=== PATIENT | male | born 1965 | race Asian ===

== ENCOUNTER 2019-03-31 20:27 | Emergency (ER) | payer OTHER ==
[~2019-03-31] VITALS: Ht 180.3 cm; Wt 142.9 kg
[2019-03-31] MEDS ORDERED: CARTIA XT240 MG PO (20:45)
[2019-03-31] MEDS ORDERED: BENA20TA2 PO (20:45)
[2019-03-31] MEDS ORDERED: CETIRIZINE10 MG PO (20:45)
[2019-03-31] MEDS ORDERED: METF500T PO (20:45)
[2019-03-31] MEDS ORDERED: COLCRYS 0.6MG0.6 MG PO (20:46)
[2019-03-31] MEDS ORDERED: JANTOVEN7.5 MG PO (20:46)
[2019-03-31] MEDS ORDERED: FURO40TA93 PO (20:46)
[2019-03-31] MEDS ORDERED: PANTOPRAZOLE 40MG TA PO (20:47)
[2019-03-31] MEDS ORDERED: SIMV10TA PO (20:47)
[2019-03-31] MEDS ORDERED: CARV6.25 PO (20:47)
[2019-03-31] MEDS ORDERED: ASA LOW DOSE81 MG PO (20:48)
[2019-03-31] MEDS ORDERED: K-TAB20 MEQ PO (20:48)
[2019-03-31 21:16] LABS: PLATELET COUNT 213 K/uL (142-355)
[2019-03-31 21:20] LABS: POTASSIUM 3.6 mmol/L (3.6-5.2)
[2019-03-31 22:12] VITALS: BP 136/89; TEMP 99
== END 2019-03-31 22:12 | disposition home or self-care (01) ==
LOC: ED 20:27
PROVIDERS: Hospitalist
DX: J06.9 Acute upper respiratory infection, unspecified (principal); J40 Bronchitis, not specified as acute or chronic; I50.9 Heart failure, unspecified
CPT/HCPCS: 36415; 80048; 85027; 85610; 87502; 87651; 94664; 99281; 99283

== ENCOUNTER 2019-11-19 09:22 | Emergency (ER) | payer OTHER ==
[~2019-11-19] VITALS: Ht 180.3 cm; Wt 147.4 kg
[~2019-11-19 09:22] MED LIST: ASA LOW DOSE81 MG PO; BENA20TA2 PO; CARTIA XT240 MG PO; CARV6.25 PO; CETIRIZINE10 MG PO; COLCRYS 0.6MG0.6 MG PO; FURO40TA93 PO; JANTOVEN7.5 MG PO; K-TAB20 MEQ PO; METF500T PO; PANTOPRAZOLE 40MG TA PO; SIMV10TA PO
[2019-11-19 10:54] LABS: PLATELET COUNT 158 K/uL (142-355)
[2019-11-19 11:11] LABS: POTASSIUM 4.1 mmol/L (3.6-5.2)
[2019-11-19 11:30] LABS: PARTIAL THROMBOPLASTIN TIME 48.6 SECONDS (24.5-33.6)
[2019-11-19 12:18] VITALS: BP 110/71; TEMP 99.1
== END 2019-11-19 12:20 | disposition home or self-care (01) ==
LOC: ED 09:22
PROVIDERS: Hospitalist
DX: U07.1 COVID-19 (principal); J06.9 Acute upper respiratory infection, unspecified; R50.9 Fever, unspecified; R06.02 Shortness of breath
CPT/HCPCS: 36415; 80053; 82550; 82553; 83605; 83880; 84484; 85027; 85610; 85730; 87040; 87502; 87635; 87651; 93005; 99283; U0003

== ENCOUNTER 2020-02-06 14:03 | Outpatient (CLI) | payer OTHER | END 2020-02-07 00:45 | disposition home or self-care (01) | LOC: RESP 14:03 | DX: I48.0 Paroxysmal atrial fibrillation (principal); I42.8 Other cardiomyopathies; I10 Essential (primary) hypertension ==

== ENCOUNTER 2020-02-23 12:54 | Outpatient (CLI) | payer OTHER ==
[2020-02-23 13:56] LABS: PLATELET COUNT 236 K/uL (142-355)
[2020-02-23 14:10] LABS: POTASSIUM 3.5 mmol/L (3.6-5.2)
== END 2020-02-23 20:37 | disposition home or self-care (01) ==
LOC: US 12:54
PROVIDERS: Nurse Practitioner Family
DX: R10.11 Right upper quadrant pain (principal)
CPT/HCPCS: 36415; 80053; 85027

== ENCOUNTER 2020-05-19 09:48 | Emergency (ER) | payer OTHER ==
[~2020-05-19] VITALS: Ht 180.3 cm; Wt 147.4 kg
[2020-05-19 09:50] VITALS: TEMP 98.5
[2020-05-19 10:24] LABS: PLATELET COUNT 275 K/uL (142-355)
[2020-05-19 10:30] LABS: POTASSIUM 3.8 mmol/L (3.6-5.2)
[2020-05-19 11:01] LABS: PARTIAL THROMBOPLASTIN TIME 46.2 SECONDS (24.5-33.6)
[2020-05-19 11:52] VITALS: BP 138/70
== END 2020-05-19 11:52 | disposition home or self-care (01) ==
LOC: ED 09:48
PROVIDERS: Hospitalist
PROC: 0H95XZZ Drainage of Chest Skin, External Approach (ICD-10-PCS; principal; 2020-05-19)
DX: L02.213 Cutaneous abscess of chest wall (principal)
CPT/HCPCS: 80048; 85027; 85610; 85730; 87070; 87077; 87185; 87186; 87205; 96365; 96375; 99284; J1885; J2405; J3370

== ENCOUNTER 2021-05-21 23:45 | Emergency (ER) | payer OTHER ==
[~2021-05-21] VITALS: Ht 180.3 cm; Wt 145.2 kg
[2021-05-22 00:22] VITALS: BP 134/74; TEMP 99.1
== END 2021-05-22 00:24 | disposition home or self-care (01) ==
LOC: ED 23:45
DX: S46.812A Strain of other muscles, fascia and tendons at shoulder and upper arm level, left arm, initial encounter (principal); X50.9XXA Other and unspecified overexertion or strenuous movements or postures, initial encounter; Y92.89 Other specified places as the place of occurrence of the external cause
CPT/HCPCS: 99282

== ENCOUNTER 2021-06-02 11:36 | Outpatient (CLI) | payer OTHER ==
[~2021-06-02] VITALS: Ht 180.3 cm; Wt 142.0 kg
== END 2021-06-02 19:04 | disposition home or self-care (01) ==
LOC: INF 11:36
PROVIDERS: ATTEND Nurse Practitioner Family
DX: U07.1 COVID-19 (principal); Z23 Encounter for immunization
CPT/HCPCS: 96365; Q0247

== ENCOUNTER 2021-06-30 11:27 | Outpatient (CLI) | payer OTHER | END 2021-06-30 18:52 | disposition home or self-care (01) | LOC: RESP 11:27 | PROVIDERS: ATTEND Specialist | DX: I42.0 Dilated cardiomyopathy (principal); I10 Essential (primary) hypertension; I48.0 Paroxysmal atrial fibrillation ==

== ENCOUNTER 2021-10-07 07:59 | Outpatient (CLI) | payer OTHER ==
[~2021-10-07] VITALS: Ht 215.9 cm; Wt 145.1 kg
== END 2021-10-07 18:49 | disposition home or self-care (01) ==
LOC: NM 07:59
PROVIDERS: ATTEND Specialist
DX: I42.0 Dilated cardiomyopathy (principal)
CPT/HCPCS: A9500; J2785

== ENCOUNTER 2022-04-19 00:06 | Emergency (ER) | payer OTHER ==
[~2022-04-19] VITALS: Ht 215.9 cm; Wt 145.2 kg
[2022-04-19 00:10] VITALS: BP 133/71; TEMP 98.4
== END 2022-04-19 02:30 | disposition home or self-care (01) ==
LOC: ED 00:06
DX: J01.80 Other acute sinusitis (principal); R07.89 Other chest pain
CPT/HCPCS: 81000; 87502; 87651; 99282

== ENCOUNTER 2022-11-26 19:58 | Emergency (ER) | payer OTHER ==
[~2022-11-26] VITALS: Ht 180.3 cm; Wt 145.2 kg
[2022-11-26 21:21] VITALS: BP 138/90; TEMP 98.2
== END 2022-11-26 21:21 | disposition home or self-care (01) ==
LOC: ED 19:58
DX: S30.861A Insect bite (nonvenomous) of abdominal wall, initial encounter (principal); L03.311 Cellulitis of abdominal wall; W57.XXXA Bitten or stung by nonvenomous insect and other nonvenomous arthropods, initial encounter
CPT/HCPCS: 96372; 99283; J1200; J2930

== ENCOUNTER 2023-01-11 10:55 | Outpatient (CLI) | payer OTHER | END 2023-01-11 19:08 | disposition home or self-care (01) | LOC: RESP 10:55 | PROVIDERS: ATTEND Specialist | DX: I10 Essential (primary) hypertension (principal); I42.0 Dilated cardiomyopathy ==